=== PATIENT | female | born 1960 | race Caucasian/White ===

== ENCOUNTER → 2023-07-29 07:37 | Outpatient (REF) | payer BC, SELFPAY | LOC: EMG 07:37 | PROVIDERS: ATTENDING PHYSICIAN Orthopaedic Surgery Hand Surgery; FAMILY PHYSICIAN Family Medicine | DX: M25.521 Pain in right elbow (principal); R20.0 Anesthesia of skin | CPT/HCPCS: 95886; 95910 ==

== ENCOUNTER 2023-09-01 06:29 | Day surgery (SDC) | payer BC, SELFPAY ==
[2023-08-27 12:06] VITALS: BMI 23.0
[2023-08-27 13:13] LABS: Hematocrit 42.2 % (37.0-47.0); Hemoglobin 13.6 g/dL (12.0-16.0); Mean Corp Hgb Conc. 32.2 g/dL (33.0-37.0); Mean Corpuscular Hgb 30.3 pg (27.0-31.0); Mean Platelet Volume 10.2 fL (7.4-10.4); Platelet Count 219 10^3/uL (130-400); Red Blood Cell Count 4.49 10^6/uL (4.20-5.40); Red Cell Dist. Width 12.9 % (11.5-14.5); White Blood Cell Count 6.2 10^3/uL (4.8-10.8)
[2023-09-01] VITALS (13 sets, daily range): BP systolic 102–120; BP diastolic 65–78; BMI 23.0
[2023-09-01] MEDS: TYLENOL 1000 MG PO (11:03)
[2023-09-01] MEDS: NORMOSOL-R 1000 IV (11:15)
[2023-09-01] MEDS: DILAUDID 0.25 MG IV ×3 (14:43→15:28)
[2023-09-01] MEDS: ROXICODONE 5 MG PO (16:10)
== END 2023-09-01 16:55 | disposition home or self-care (01) ==
LOC: SDS 06:29
PROVIDERS: ATTENDING PHYSICIAN Orthopaedic Surgery Hand Surgery; FAMILY PHYSICIAN Family Medicine
DX: S53.431A Radial collateral ligament sprain of right elbow, initial encounter (principal); S53.441A Ulnar collateral ligament sprain of right elbow, initial encounter; X58.XXXA Exposure to other specified factors, initial encounter; G56.21 Lesion of ulnar nerve, right upper limb; M77.11 Lateral epicondylitis, right elbow
CPT/HCPCS: 24343; 24359; 36415; 85027; 93005; C1713

== ENCOUNTER → 2024-07-19 14:35 | Outpatient (REF) | payer BC, SELFPAY | LOC: WDC 14:35 | PROVIDERS: ATTENDING PHYSICIAN Family Medicine | DX: Z12.31 Encounter for screening mammogram for malignant neoplasm of breast (principal) | CPT/HCPCS: 77063; 77067 ==

== ENCOUNTER 2024-11-29 06:02 | Day surgery (SDC) | payer BC, SELFPAY ==
[2024-11-29] VITALS (13 sets, daily range): BP systolic 98–124; BP diastolic 60–79; BMI 23.2
[2024-11-29 07:30] LABS: Hemoglobin 13.3 g/dL (12.0-16.0)
[2024-11-29] MEDS: TYLENOL 1000 MG PO (07:31)
[2024-11-29] MEDS: NORMOSOL-R/PLASMALYTE-A 1000 IV (07:31)
[2024-11-29] MEDS: MOBIC 15 MG PO (07:31)
[2024-11-29 07:48] LABS: Blood Urea Nitrogen 17 mg/dl (7-17); Estimated Creatinine Clearance 61 ml/min; Glucose 105 mg/dl (70-99)
[2024-11-29] MEDS: SUBLIMAZE 25 MCG IV ×2 (10:18→10:26)
[2024-11-29] MEDS: ROXICODONE 5 MG PO (11:43)
== END 2024-11-29 12:40 | disposition home or self-care (01) ==
LOC: SDS 06:02
PROVIDERS: ATTENDING PHYSICIAN Orthopaedic Surgery Hand Surgery
DX: S63.8X2A Sprain of other part of left wrist and hand, initial encounter (principal); S62.112A Displaced fracture of triquetrum [cuneiform] bone, left wrist, initial encounter for closed fracture; X58.XXXA Exposure to other specified factors, initial encounter
CPT/HCPCS: 25320; 82565; 82947; 84520; 85018; 93005; C1713